=== PATIENT | male | born 2000 | race Caucasian/White ===

== ENCOUNTER 2021-03-14 15:56 | Outpatient (CLI) | payer MEDICAID, OTHER ==
[2021-03-14 16:27] VITALS: BP 142/93
--- NOTE | 2021-03-14 16:27 | SLEEP CARE CONSULTATION ---
Information from patient questionnaire entered by Miko Morales. I have reviewed and concur with the information entered by Miko Morales. This document represents the service I personally performed and the decisions made by me, Lisa Mcconnell ARNP. History of Present Illness Service Date and Time: 03/14/2021 1556 Reason for Visit: New patient Chief Complaint: reports: Unrefreshed sleep, Snoring, Observed pauses in breathing Date of Onset: Since I was 12 (9 years) Usual bedtime: 10:00/11:00 Time it takes to fall asleep: 20-30 mins Snores at night: Yes Observed to quit breathing while asleep: Yes Sleeps alone due to snoring: No Number of times waking at night: 0 Reasons for waking at night: reports: Other (Unknown reason) Toss, Turn, or Twitch while sleeping: Yes Recalls having dreams: Yes Usually gets out of bed at: 5:30 Feels refreshed in the morning: No Morning headache: No Sleepy or fatigued during the day: Yes Ever fallen asleep while driving: No Takes day naps: No Dreams during day naps: No Prior sleep studies: No Additional HPI information: I had the pleasure of seeing VERONIKA NEVES today regarding the possibility of him having a sleep disorder. His current complaints are snoring and observed pauses in breathing. He states his snoring is super loud. He has woke up snoring but no gasping or choking. He talks in his sleep. He states sometimes he feels rested but rarely feels like he had a good night sleep. He has snored loudly since he was a kid. He has no co-morbities. 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 Patient is and lives in [place]. Have you smoked in the past 12 months: No Alcohol use: Yes Alcohol amount and frequency: 3-4 drinks per month Caffeine use: Yes Caffeine amount and frequency: 300-600 mg caffeine daily Family History Family history of sleep disordered breathing: Yes Family Hx Sleep Apnea: Father: Snoring Allergies and Home Medications Drug allergies reviewed: Yes (NKDA) Home medication list reviewed: Yes (no daily medications) Review of Systems Cardiovascular: reports: high blood pressure Gastrointestinal: denies: heartburn Neurological: denies: headaches, head trauma Ear/Nose/Throat: reports: wisdom teeth removed. denies: nasal congestion, dry mouth/throat, injury to nose, tonsillectomy Endocrine: reports: too hot or cold Musculoskeletal: reports: muscle pain or cramping Physical Exam Blood Pressure: 142/93 Cuff size: wrist Heart Rate: 75 O2 Saturation: 99 Height: 6 ft Weight: 238 lb Body Mass Index: 32.3 BMI Classification: Obese Neck circumference: 17.5 (inches) Mouth and throat: narrow oropharynx Soft palate: long Hard palate: normal Uvula visualization: 50% Mallampati Class II Tongue: enlarged in size with teeth chong on lateral edges Tonsils: 2+ Neck: normal w/o lymphadenopathy or thyromegaly Heart: regular rate and rhythm Lungs: clear bilaterally Impression and Plan 1. Suspected Obstructive Sleep Apnea-Hypopnea Syndrome, as suggested by a history of loud and irregular snoring, observed cessation of breath while asleep, unrefreshed sleep, and cognitive impairment. Narrow oropharynx and obesity are common predisposing factors for obstructive sleep apnea-hypopnea syndrome. I recommend proceeding to polysomnography to confirm the diagnosis and to assess severity. If the patient has significant sleep disordered breathing, a manual CPAP titration study will also be performed to find the optimal treatment pressure. I informed the patient of what the sleep studies involve and after some discussion, obtained agreement to proceed. The pathophysiology of obstructive sleep apnea-hypopnea syndrome was discussed with the patient and health risks of cardiovascular and cerebrovascular disease if not treated. AASM brochure for obstructive sleep apnea-hypopnea syndrome given and reviewed. Risks of drowsy driving discussed in detail and patient advised to avoid long distance driving and to conductor pullman at the first sign of drowsiness. Patient agreed to plan. * Schedule polysomnography +- manual CPAP titration study and return in 1-2 weeks after the study to discuss result and initiate therapy. * Avoid long distance driving or driving when feeling sleepy. * Avoid alcohol, sedative and muscle relaxant around bedtime. * Attempt to lose weight. * Review instructions provided by trained office staff on how to prepare for the sleep study. * Return for follow-up after sleep study completed. Counseling Topics: Weight loss health impact Visit Type: In Office Time Spent with Patient (minutes): 30 Provider Statement: I spent 100% of the Face to Face Visit with the patient with greater than 50% spent counseling the patient and coordination of care.
== END 2021-03-14 15:57 | disposition home or self-care (01) ==
LOC: SC 15:56
PROVIDERS: ATTEND Nurse Practitioner Family
DX: R06.81 Apnea, not elsewhere classified (principal); R06.83 Snoring; G47.8 Other sleep disorders; R41.89 Other symptoms and signs involving cognitive functions and awareness; E66.9 Obesity, unspecified; Z68.32 Body mass index [BMI] 32.0-32.9, adult
CPT/HCPCS: 99203; 99212

== ENCOUNTER 2021-05-05 09:07 | Outpatient (CLI) | payer OTHER | END 2021-05-05 09:08 | disposition home or self-care (01) | LOC: SC 09:07 | PROVIDERS: ATTEND Nurse Practitioner Family | DX: G47.33 Obstructive sleep apnea (adult) (pediatric) (principal); R09.02 Hypoxemia | CPT/HCPCS: 95806 ==

== ENCOUNTER 2021-05-23 09:11 | Outpatient (CLI) | payer OTHER ==
--- NOTE | 2021-05-23 09:50 | SLEEP CARE CONSULTATION ---
Information from patient questionnaire entered by Ivis Gomez. I have reviewed and concur with the information entered by Ivis Gomez. This document represents the service I personally performed and the decisions made by , Lisa Mcconnell ARNP. History of Present Illness Service Date and Time: 05/23/2021 0911 Initial [place] Sleepiness Scale score: 3 (in 2020) Additional HPI information: VERONIKA NEVES returns for follow up and results of the recently performed home sleep study. I explained the pathophysiology behind obstructive sleep apnea. We then spent quite a bit of time discussing different treatment options. For mild obstructive sleep apnea, surgery and oral appliance are alternatives to nasal CPAP therapy but in moderate or severe cases, nasal CPAP is the most effective and reliable treatment. Because apnea is primarily in supine position, then positional management therapy could be effective. Methods discussed such as positioning with pillows, using a T-shirt with tennis balls in the back, and shown commercial products that have a pillow format on back to prevent supine sleep. I reviewed the impact of weight changes on sleep apnea and strongly recommended losing weight. After some discussion, the patient opted to go with the nasal CPAP therapy. Nasal autoCPAP set at 4-15 cmH20 will be ordered with rationale explained. A manual titration study will be ordered if unable to find optimal pressure with office adjustments. I explained how CPAP machine works with sample devices [employer] Dreamstation and [employer] [id number] and what to expect when using the machine. Using CPAP every night in order to get used to it was emphasized. Patient advised to put CPAP mask on before getting into bed so as not to fall asleep without CPAP. To assist acclimation to CPAP use, it could also be used for a short time during d ay while reading or watching TV. The patient was instructed to call the CPAP supplier to discuss any mechanical problem that may occur. If the mask given is uncomfortable or is difficult to keep on through the night even with adjustment, contact the CPAP supplier as many will replace with another mask style if notified before 30 days. If snoring or perceives is not getting enough air or too much air from the machine, notify this office. AAS patient education PAP tips reviewed and given to patient. Patient counseled not drink alcohol less than 4 hours before bedtime as it can increase snoring and apnea. Patient was cautioned about risks of drowsy driving until sleepiness symptoms resolve. Sleep Study - Results Type of Sleep Study: Home sleep study Prior sleep studies: No Polysomnography/Home Sleep Study results: Physician Impression: The quality of the study is good. The length of the study is adequate (> 240 minutes). Please also see the tabulated and graphic data. 1. Obstructive Sleep Apnea-Hypopnea (ICD-10 G47.33), severe, with an AHI of 39.2 /hr and kathy SaO2 of 82%. During the study, the patient had 208 apneas (208 obstructive, 0 cent ral, 0 mixed) and 34 hypopneas. The longest episode lasted 55.0 seconds. The respiratory events occurred almost exclusively during supine sleep (supine AHI was 71.9 and non-supine, 0.71). 2. Hypoxemia (ICD-10 R09.02), mild, with the lowest oxygen saturation of 82 % and 9.0 minutes with SaO2 under 90%. Baseline oxygen saturation was normal (Average oxygen saturation was 94%). Allergies and Home Medications Home medication list reviewed: Yes (no changes) Review of Systems Review of systems same as previous: Yes (no changes) Physical Exam Heart Rate: 80 O2 Saturation: 98 Height: 6 ft Weight: 235 lb Body Mass Index: 31.8 BMI Classification: Obese Impression and Plan 1. Obstructive Sleep Apnea-Hypopnea Syndrome, severe, with lowest oxygen saturation of 82%. Obviously this is the cause of the patients symptoms of unrefreshed sleep, and excessive daytime sleepiness. Positive pressure therapy could benefit his overall health and reduce risks of cardiovascular and cerebrovascular adverse events. As mentioned above, the patient will be started on nasal autoCPAP therapy with pressure set at 4-15 cmH2O. A manual titration study will be completed if unable to find optimal treatment pressure with office adjustments. Compliance guidelines also reviewed. A copy of compliance guidelines will be given for reference at check out. Because the apnea is more severe supine, I instructed to avoid sleeping supine using pillow positioning until able to start CPAP use. 2. Hypoxemia, mild, with the lowest oxygen saturation of 82 % and 9.0 minutes with SaO2 under 90%. His baseline oxygen saturation was normal with an average oxygen saturation of 94%. * Nasal auto CPAP therapy, pressure at 4-15 cm H2O. * Attempt to lose weight. * Avoid alcohol consumption near bedtime. * Avoid supine sleep until using CPAP. * The patient is again cautioned about driving until sleepiness completely resolves. * Return one month after CPAP obtained. I will assess response to therapy and compliance at that time. Counseling Topics: Weight loss health impact Visit Type: In Office Time Spent with Patient (minutes): 20 Provider Statement: I spent 100% of the Face to Face Visit with the patient with greater than 50% spent counseling the patient and coordination of care.
== END 2021-05-23 09:12 | disposition home or self-care (01) ==
LOC: SC 09:11
PROVIDERS: ATTEND Nurse Practitioner Family
DX: G47.33 Obstructive sleep apnea (adult) (pediatric) (principal); R09.02 Hypoxemia; E66.9 Obesity, unspecified; Z68.31 Body mass index [BMI] 31.0-31.9, adult
CPT/HCPCS: 99212; 99213

== ENCOUNTER 2022-01-13 16:33 | Outpatient (CLI) | payer OTHER ==
--- NOTE | 2022-01-13 16:50 | SLEEP CARE CONSULTATION ---
Information from patient questionnaire entered by Neha Williamson MA. I have reviewed and concur with the information entered by Neha Williamson MA. This document represents the service I personally performed and the decisions made by , Lisa Mcconnell ARNP. History of Present Illness Service Date and Time: 01/13/2022 1620 Previous diagnosis: Severe, Obstructive Sleep Apnea-Hypopnea Syndrome AHI: 39.2 (in 04/2021) Reason for follow up: first compliance (SET UP DATE 11/25/21, RESMED, ) Equipment type: CPAP Equipment obtained from: [employer] (got initial supplies) Mask style: Full face Backup mask available: No Prior sleep studies: No Type of Sleep Study: Home sleep study HPI additional information: VERONIKA NEVES was diagnosed to have severe, AHI 39.2, obstructive sleep apnea- hypopnea syndrome and returns via video telehealth visit today for CPAP therapy first compliance follow-up. Sleep Study - Results Type of Sleep Study: Home sleep study Prior sleep studies: No CPAP Compliance Data - Data Reviewed with Patient Average duration of nightly device use: 2 HOURS 14 MINUTES Compliance rate %: 7 (30 days) Current pressure setting (cmH2O): 4-15 (median 5.7, avg 9.4, max 10.2) Average residual AHI: 1.1 Central apnea: 0.5 Obstructive apnea: 0.2 Average large leak: 5.5 Subjective Missed days of use due to: reports: mask issues (not tolerating), travel Patient concerns: reports: mask discomfort, mask leak noise, dry mouth, nose, throat (dry lips). denies: aerophagia, air blowing in eyes, condensation in mask/hose, nasal congestion, epistaxis, other Observed to snore while using device: No Current pressure setting perceived as: too high On therapy, patient: reports: other (not using enough to feel any changes). denies: drowsiness while driving Initial [place] Sleepiness Scale score: 3 (in 2020) Current [place] Sleepiness Scale score: 1 Allergies and Home Medications Home medication list reviewed: Yes (no changes) Allergy and home medication list: Allergies No Known Drug Allergies Allergy (Verified 08/28/13 19:31) Review of Systems Review of systems same as previous: Yes (no changes) Physical Exam Vital signs obtained and entered by: Telehealth visit Height: 6 ft Weight: 220 lb Body Mass Index: 29.8 BMI Classification: Overweight Impression and Plan 1. Obstructive Sleep Apnea-Hypopnea Syndrome, severe, with poor treatment compliance and good apnea control. Patient states he is just not tolerating the mask on his face. He will wake up and it is off of his face. He states he gets bursts of high air pressure when still awake that really bother him and he feels he can't breathe. He does not think that he will be able to take the CPAP along when he travels, even if he got a smaller traveler size. He is asking about other treatment options. I suggested that I reduce the pressure for comfort and that he continue to try to use the mask as much as possible and he agreed. He may also ask his PCP for a referral to an ENT for an evaluation for surgical options for his sleep apnea. He voiced understanding and agreement. He may also sleep on his side if unable to use his CPAP because he is in the normal range non-supine. He voiced understanding. The patients pressure will be changed to autoCPAP 6-8 cmH20 for pt comfort. Patient advised to contact me if pressure change is uncomfortable so that it can be adjusted. Goals for apnea control discussed. Patient's apnea severity and rationale for treatment to reduce apnea, improve sleep quality and reduce cardiovascular and cerebrovascular events was reviewed. * Change auto CPAP pressure to 6-8 cmH2O * Notify me if snoring with mask or feeling that the pressure is too much or too little * Maintain a healthy weight * Call this office if any problems using CPAP * Return for follow up in 1-2 months, or sooner if concerns arise Counseling Topics: Weight loss health impact Visit Type: Telehealth Video Video Type: Doximity Patient Location: car Location of Provider: Office Patient agrees and consents to this telehealth visit type: Yes Patient agrees to have their insurance billed: Yes Time Spent with Patient (minutes): 29 Provider Statement: I spent 100% of the Telehealth Video Call with the patient with greater than 50% spent counseling the patient and coordination of care.
== END 2022-01-13 16:34 | disposition home or self-care (01) ==
LOC: SC 16:33
PROVIDERS: ATTEND Nurse Practitioner Family
DX: G47.33 Obstructive sleep apnea (adult) (pediatric) (principal); E66.3 Overweight; Z68.29 Body mass index [BMI] 29.0-29.9, adult
CPT/HCPCS: 99212